=== PATIENT | female | born 1995 | race Caucasian/White ===

== ENCOUNTER 2019-12-03 07:49 | Emergency (ER) | payer BC, SELFPAY ==
--- NOTE | ~2019-12-03 | XR_ITS ---
EXAMINATION: XR wrist RT min 3V EXAM DATE: 12/03/2019 08:40 INDICATION: No known recent injury provided at this time. Pain of the right wrist ulnar side. TECHNIQUE: Right wrist frontal, frontal with ulnar deviation, oblique and lateral projections obtain ed and reviewed. There is no prior study for comparison. FINDINGS: Right wrist scapholunate joint space is maintained. There are no acute fractures or disloca tions identified. There is no subcutaneous gas. The soft tissue is unremarkable. There are no rad iopaque foreign bodies. There are no bony erosions identified. IMPRESSION: 1. Unremarkable XR wrist RT min 3V exam. Reviewed, dictated and finalized at location B. 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
[2019-12-03 07:55] VITALS: BP 131/68; PULSE 90; RESP 19; TEMP 36.4; O2SAT 99
--- NOTE | 2019-12-03 08:29 | ED.EXTPRO ---
HPI - Extremity Problem General Chief complaint: Extremity Problem,Nontraumatic Stated complaint: right hand injury Time Seen by Provider: 12/03/19 08:04 Source: patient Mode of arrival: ambulatory Limitations: no limitations History of Present Illness HPI Narrative: This is a 24 year old female that presents to the ER for right wrist pain since yesterday. Reports sudden onset while at work. No known injuries or trauma. Reports the pain is on the medial side of her wrist. Worse with movement and relieved with rest. Also reports some swelling of her hand. Reports she took some ibuprofen just prior to arrival. Denies fever, decreased ROM or erythema. Related Data Allergies Allergy/AdvReac Type Severity Reaction Status Date / Time amoxicillin Allergy Intermediate rash Verified 12/03/19 08:01 Review of Systems Review of Systems: Narrative: CONSTITUTIONAL: Denies fever SKIN: Denies rash MUSCULOSKELETAL: Reports joint pain, and myalgia. NEUROLOGIC: Denies numbness All systems reviewed & are unremarkable except as noted in HPI and below PMFSH Surgical History Surgical History (Updated 12/03/19 @ 08:31 by Ni José PA-C) History of tonsillectomy Social History Social History (Updated 12/03/19 @ 08:31 by Ni José PA-C) Smoking status: Never smoker Gender identity (if verbalized by the patient): Female Exam Narrative: Exam Narrative: GENERAL: Well-appearing, well-nourished, and in no acute distress. HEAD: Normocephalic, atraumatic. EYES: EOMI. CHEST: Clear to auscultation. No respiratory distress. No wheezes rales or rhonchi HEART: Regular rate and rhythm. No murmur heard. Normal peripheral pulses. EXTREMITIES: Normal range of motion. Mild swelling about the right hand. No erythema or warmth. Normal radial pulses. Normal sensation. SKIN: Warm, dry, no rash. NEURO: No focal deficits. Alert and oriented x3. PSYCH: Normal mood and affect Course Vital Signs Vital signs: Vital Signs Temperature 97.5 F L 12/03/19 07:55 Pulse Rate 90 12/03/19 07:55 Respiratory Rate 19 12/03/19 07:55 Blood Pressure 131/68 12/03/19 07:55 Pulse Oximetry 99 12/03/19 07:55 Temperature 97.5 F L 12/03/19 07:55 Pulse Rate 90 12/03/19 07:55 Respiratory Rate 19 12/03/19 07:55 Blood Pressure 131/68 12/03/19 07:55 Pulse Oximetry 99 12/03/19 07:55 MDM - Extremity (Nontraumatic) MDM Narrative Medical decision making narrative: Patient presents the emergency department for right wrist pain since yesterday. No known injury or trauma. Mild swelling about the right hand. No erythema or warmth. Patient has normal range of motion of the hand. CBC without acute changes. Inflammatory markers are mildly elevated. D-dimer is not elevated. Right wrist x-rays without acute changes. Patient was instructed to rest, ice and take xbbs-[id number] pain medication as needed. She is to follow-up with primary care doctor. She was given warnings to return to the ER Lab Data Attestation: I reviewed the patient's lab results. Result diagrams: 12/03/19 08:43 Labs: Lab Results 12/03/19 12/03/19 12/03/19 Range/Units 08:43 08:43 08:43 WBC 7.6 (4.5-10.0) K/mm3 RBC 4.41 (4.2-5.4) M/mm3 Hgb 13.3 (12.0-15.0) g/dL Hct 40.8 (37.0-47.0) % MCV 92.5 (80-100) fl MCH 30.2 (26-34) pg MCHC 32.6 (32-36) g/dl RDW 13.2 (11.5-14.5) % Plt Count 290 (150-375) k/mm3 MPV 10.6 H (7.4-10.4) fl Immature Gran % (Auto) 0.1 (0-0.5) % Neut % (Auto) 70.7 (45.5-73.1) % Lymph % (Auto) 22.5 (18.3-44.2) % [place] % (Auto) 4.9 (2.6-8.5) % Eos % (Auto) 1.5 (0-4.4) % Baso % (Auto) 0.3 (0.2-1.2) % Lymph # (Auto) 1.70 (0.9-3.2) K/mm3 [place] # (Auto) 0.4 (0.1-0.6) K/mm3 Eos # (Auto) 0.1 (0-0.3) K/mm3 Baso # (Auto) 0.0 (0.0-0.1) K/mm3 Abs Immat Gran (auto) 0.01 (0.00-0.031) K/mm3 Absolute Neuts (auto) 5.4 (1.3-6.7) K/mm3
[2019-12-03 08:50] LABS: Basophils Percent Auto 0.3 % (0.2-1.2); Eosinophils Absolute Auto 0.1 K/mm3 (0-0.3); Eosinophils Percent Auto 1.5 % (0-4.4); Hematocrit 40.8 % (37.0-47.0); Hemoglobin 13.3 g/dL (12.0-15.0); Immature Granulocyte Absolute 0.01 K/mm3 (0.00-0.031); Immature Granulocyte Percent A 0.1 % (0-0.5); Lymphocytes Percent Auto 22.5 % (18.3-44.2); Mean Corpuscular HGB Conc 32.6 g/dl (32-36); Mean Corpuscular Hemoglobin 30.2 pg (26-34); Mean Corpuscular Volume 92.5 fl (80-100); Mean Platelet Volume 10.6 fl (7.4-10.4); Monocytes Absolute Auto 0.4 K/mm3 (0.1-0.6); Monocytes Percent Auto 4.9 % (2.6-8.5); Neutrophils Absolute Auto 5.4 K/mm3 (1.3-6.7); Neutrophils Percent Auto 70.7 % (45.5-73.1); Platelet Count Result 290 k/mm3 (150-375); Red Blood Count 4.41 M/mm3 (4.2-5.4); Red Cell Distribution Width 13.2 % (11.5-14.5); White Blood Count 7.6 K/mm3 (4.5-10.0)
[2019-12-03 09:02] LABS: D Dimer 0.45 ug/mL (<0.48)
[2019-12-03 09:05] LABS: CRP 2.2 mg/dL (<1.0)
[2019-12-03 09:25] LABS: Erythrocyte Sedimentation Rate 44 mm/hr (0-20)
[2019-12-03 10:13] VITALS: BP 125/76; PULSE 90; RESP 19; O2SAT 100
== END 2019-12-03 10:14 | disposition home or self-care (01) ==
PROVIDERS: Physician Assistant; Emergency Provider Family Medicine
DX: M25.531 Pain in right wrist (principal)
CPT/HCPCS: 36415; 73110; 85025; 85380; 85652; 86140; 99283

== ENCOUNTER 2020-03-16 07:50 | Outpatient (CLI) | payer BC, SELFPAY ==
[2020-03-16 08:04] LABS: Basophils Percent Auto 0.5 % (0.2-1.2); Eosinophils Absolute Auto 0.2 K/mm3 (0-0.3); Eosinophils Percent Auto 2.3 % (0-4.4); Hematocrit 41.3 % (37.0-47.0); Hemoglobin 13.4 g/dL (12.0-15.0); Immature Granulocyte Absolute 0.02 K/mm3 (0.00-0.031); Immature Granulocyte Percent A 0.2 % (0-0.5); Lymphocytes Absolute Auto 2.57 K/mm3 (0.9-3.2); Lymphocytes Percent Auto 29.3 % (18.3-44.2); Mean Corpuscular HGB Conc 32.4 g/dl (32-36); Mean Corpuscular Hemoglobin 30.3 pg (26-34); Mean Corpuscular Volume 93.4 fl (80-100); Mean Platelet Volume 10.1 fl (7.4-10.4); Monocytes Absolute Auto 0.6 K/mm3 (0.1-0.6); Monocytes Percent Auto 6.6 % (2.6-8.5); Neutrophils Absolute Auto 5.4 K/mm3 (1.3-6.7); Neutrophils Percent Auto 61.1 % (45.5-73.1); Platelet Count Result 267 k/mm3 (150-375); Red Blood Count 4.42 M/mm3 (4.2-5.4); Red Cell Distribution Width 13.1 % (11.5-14.5); White Blood Count 8.8 K/mm3 (4.5-10.0)
[2020-03-16 08:16] LABS: Alanine Aminotransferase 18 U/L (4-35); Albumin Level 4.1 g/dL (3.5-5.1); Alkaline Phosphatase 102 U/L (38-126); Aspartate Amino Transferase 22 U/L (14-36); Bilirubin,Total 0.3 mg/dL (0.2-1.3); Blood Urea Nitrogen 10 mg/dL (7-17); Calcium 9.2 mg/dL (8.4-10.2); Carbon Dioxide 26 mmol/L (22-30); Chloride 104 mmol/L (98-107); Cholesterol 209 mg/dL (0-200); Estimated Glomerular Filt Rate > 60; Glucose 92 mg/dL (65-105); HDL Direct 34 mg/dL; Potassium 4.5 mmol/L (3.4-5.0); Sodium 137 mmol/L (137-145); Triglycerides 158 mg/dL (<150)
[2020-03-16 08:27] LABS: LDL Cholesterol Direct 144 mg/dL
== END 2020-03-16 07:51 | disposition home or self-care (01) ==
PROVIDERS: PCP Family Medicine; Visit Provider Family Medicine
DX: R63.5 Abnormal weight gain (principal); Z13.220 Encounter for screening for lipoid disorders
CPT/HCPCS: 36415; 80053; 80061; 84443; 85025

== ENCOUNTER → 2020-12-14 09:37 | Outpatient (CLI) | payer BC, SELFPAY ==
--- NOTE | ~2020-12-14 | US_ITS ---
US breast BI complete DATE: 12/14/2020 10:11 INDICATION: Right breast pain for years in the subareolar area and now the complete breasts. TECHNIQUE: Bilateral complete sonographic imaging of the breasts, with color flow imaging COMPARISON: None FINDINGS: Right breast 8:00 4.5 cm from nipple: There is a circumscribed hypoechoic 1.2 x 0.8 x 1.2 cm mass wit h some internal vascularity. There is some through-transmission. The sonographic features are most co nsistent with benign fibroadenoma. No suspicious mass or shadowing is detected elsewhere in either breast. IMPRESSION: BI-RADS Category 2: Benign finding; right breast 1.2 x 0.8 cm likely benign fibroadenoma Reviewed, dictated and finalized at Location A. Reviewed, dictated and finalized at location A. ER HEAD IMPRESSION: BI-RADS Category 2: Benign finding; right breast 1.2 x 0.8 cm likel y benign fibroadenoma
== END ==
PROVIDERS: PCP Family Medicine; Visit Provider Obstetrics & Gynecology
DX: N63.13 Unspecified lump in the right breast, lower outer quadrant (principal)
CPT/HCPCS: 76641

== ENCOUNTER 2024-02-27 08:08 | Outpatient (CLI) | payer OTHER, SELFPAY ==
[2024-02-27 09:05] LABS: Anion Gap 8 mmol/L (4-12); Blood Urea Nitrogen 12 mg/dL (7-17); Calcium 9.7 mg/dL (8.4-10.2); Carbon Dioxide 25 mmol/L (22-30); Chloride 107 mmol/L (98-107); Cholesterol 197 mg/dL (0-200); Estimated Glomerular Filt Rate > 60; Glucose 104 mg/dL (65-110); HDL Direct 32 mg/dL; Potassium 4.6 mmol/L (3.4-5.0); Sodium 140 mmol/L (137-145); Triglycerides 201 mg/dL (<150)
[2024-02-27 09:18] LABS: LDL Cholesterol Direct 133 mg/dL
[2024-02-27 09:27] LABS: Basophils Percent Auto 0.4 % (0.2-1.2); Eosinophils Absolute Auto 0.1 K/mm3 (0-0.3); Eosinophils Percent Auto 1.4 % (0-4.4); Hematocrit 39.6 % (37.0-47.0); Hemoglobin 13.1 g/dL (12.0-15.0); Immature Granulocyte Absolute 0.02 K/mm3 (0.00-0.031); Immature Granulocyte Percent A 0.3 % (0-0.5); Lymphocytes Absolute Auto 2.13 K/mm3 (0.9-3.2); Lymphocytes Percent Auto 28.1 % (18.3-44.2); Mean Corpuscular HGB Conc 33.1 g/dl (32-36); Mean Corpuscular Hemoglobin 30.4 pg (26-34); Mean Corpuscular Volume 91.9 fl (80-100); Mean Platelet Volume 10.6 fl (7.4-10.4); Monocytes Absolute Auto 0.4 K/mm3 (0.1-0.6); Monocytes Percent Auto 5.7 % (2.6-8.5); Neutrophils Absolute Auto 4.9 K/mm3 (1.3-6.7); Neutrophils Percent Auto 64.1 % (45.5-73.1); Platelet Count Result 275 k/mm3 (150-375); Red Blood Count 4.31 M/mm3 (4.2-5.4); Red Cell Distribution Width 13.2 % (11.5-14.5); White Blood Count 7.6 K/mm3 (4.5-10.0)
== END 2024-02-27 08:09 | disposition home or self-care (01) ==
PROVIDERS: PCP Family Medicine; Visit Provider Family Medicine
DX: J02.9 Acute pharyngitis, unspecified (principal); R63.5 Abnormal weight gain; Z13.220 Encounter for screening for lipoid disorders
CPT/HCPCS: 36415; 80048; 80061; 84443; 85025

== ENCOUNTER 2024-03-10 14:19 | Outpatient (CLI) | payer OTHER, SELFPAY ==
--- NOTE | ~2024-03-10 | US_ITS ---
US breast RT limited DATE: 03/10/2024 14:51 INDICATION: History of right breast mass at 8:00 4.5 cm from nipple (December 14, 2020 bilateral compl ete breast examination) TECHNIQUE: Targeted real-time ultrasound and color-flow imaging of right breast at 8:00 4.5 cm from n ipple COMPARISON: December 14, 2020 bilateral complete breast FINDINGS: There is a circumscribed oval hypoechoic 1.46 x 1.0 x 1.35 cm slightly hypoechoic breast ma ss with some internal vascularity on color flow imaging. There is through transmission, no posterior shadowing. The margins are smooth and circumscribed and there is through transmission, factors all fa voring benign diagnosis. There is mild interval enlargement since December 14, 2020 at which time it measured approximately 0.8 x 1.2 x 1.24 cm dimension; there was some color flow signal within the lesion at that time as well.. IMPRESSION: BI-RADS Category 2: Benign finding. Probable benign fibroadenoma, slightly increased in s ize since December 14, 2020 Reviewed, dictated and finalized at Location A. Reviewed, dictated and finalized at location B. IMPRESSION: BI-RADS Category 2: Benign finding. Probable benign fibroadenoma, s lightly increased in size since December 14, 2020
== END 2024-03-10 14:20 | disposition home or self-care (01) ==
LOC: ANHIMG 14:22
PROVIDERS: PCP Family Medicine; Visit Provider Obstetrics & Gynecology
DX: N60.21 Fibroadenosis of right breast (principal)
CPT/HCPCS: 76642

== ENCOUNTER 2025-03-10 09:35 | Outpatient (CLI) | payer OTHER, SELFPAY ==
--- NOTE | ~2025-03-10 | US_ITS ---
US breast RT limited 03/10/2025 09:58 Indication: Right breast mass follow-up Procedure: High-resolution Limited ultrasound of the right breast Comparison: Comparison to multiple prior studies sequentially, with oldest reviewed study dated 07/2021. Findings: At 8:00, 4.5 cm from the nipple there is an oval circumscribed parallel oriented hypoechoic mass measuring 1.7 x 1.5 x 1 cm. There is internal vascularity measuring, no posterior features. Siz e comparison with 1.2 x 1.2 x 0.8 cm on 12/14/2020. Impression: 1: Enlarging right breast mass at 8:00, 4.5 cm from the nipple. BI-RADS CATEGORY 4-SUSPICIOUS ABNORMALITY RECOMMENDATION: Ultrasound-guided right breast biopsy recommended. Reviewed, dictated and finalized at location A. Impression: 1: Enlarging right breast mass at 8:00, 4.5 cm from the nipple. BI-RADS CATEGORY 4-SUSPICIOUS ABNORMALITY RECOMMENDATION: Ultrasound-guided right breast biopsy recommended.
--- OUTSIDE RECORDS SUMMARY | 2025-03-10 10:11 | XMS_ITS | Clinical Summary ---
Author Organization [facility] Address [address] [place] [address] Care Team Providers Care Street Light Repairer Name Role Phone Unavailable Primary Care Provider Unavailabl e Source Comments [facility],non-owned Affiliates and Associated Physician Practices is amultiple site organization consisting of ambulatory clinics and hospital sitesin [place], [place]. This disclosure is being madepursuant to the Care Everywhere program and may not contain all information available regarding this patient. 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 Gender Identity Not on file Sexual Orientation Not on file Plan of Treatment Health Maintenance Due Date Last Done Comments HIV SCREENING 2011 HEPATITIS C SCREENING 08/02/2014 DTAP/TDAP/TD VACCINES (1 - Tdap) 2015 HEPATITIS B VACCINE (1 of 3 - 19+ 3-dose series) 2015 COVID-19 VACCINE (1 - 2023-2 5 season) 2024 DEPRESSION SCREENING 11/05/2024 INFLUENZA VACCINE (Season Ended) 2025 ZOSTER VACCINE (1 of 2) 2046 HIB VACCINE Aged Out No longer eligi ble based on patient's age to complete this topic HPV VACCINE Aged Out No longer eligi ble based on patient's age to complete this topic MENINGOCOCCAL (Group B) VACC INE SHARED DECISION-MAKING Aged Out No longer eligibl e based on patient's age to complete this topic MENINGOCOCCAL GROUPS A/C/Y/W VACCINE Aged Out No longer eligible b ased on patient's age to complete this topic PNEUMOCOCCAL VACCINE Aged Out No long er eligible based on patient's age to complete this topic
== END 2025-03-10 09:36 | disposition home or self-care (01) ==
PROVIDERS: PCP Family Medicine; Visit Provider Obstetrics & Gynecology
DX: N63.13 Unspecified lump in the right breast, lower outer quadrant (principal)
CPT/HCPCS: 76642

== ENCOUNTER 2025-04-30 10:34 | Outpatient (CLI) | payer OTHER, SELFPAY ==
--- NOTE | ~2025-04-30 | CT_ITS ---
CT sinus wo con Ordering provider: Briana Rey APRN History: . Chronic sinusitis, unspecified . Comparison: None. Technique: Thin slice Scans CT of the paranasal sinuses was performed with coronal and sagittal refor matted images. No IV contrast. . Automated exposure control and iterative reconstruction technique w ere employed. The dose-length product was 379.13 mGy-cm. Findings: NASAL SEPTUM: Mild right nasal septal deviation. OSTEOMEATAL UNITS: Bilaterally patent. NASAL TURBINATES AND NASOPHARYNX: Normal. PARANASAL SINUSES: Bilateral maxillary sinus. Bilateral ethmoid sinus disease. Bilateral frontal sinu s disease. VISUALIZED MASTOIDS: Normal as visualized. BONES: Normal. SUPERFICIAL SOFT TISSUES/VISUALIZED BRAIN PARENCHYMA: Normal. IMPRESSION: Mild right nasal septal deviation. Pansinusitis. Reviewed, dictated and finalized at location A.
== END 2025-04-30 10:35 | disposition home or self-care (01) ==
LOC: GOSHIMG 10:34
PROVIDERS: PCP Family Medicine; Visit Provider Nurse Practitioner Adult Health
DX: J34.2 Deviated nasal septum (principal); J32.4 Chronic pansinusitis
CPT/HCPCS: 70486

== ENCOUNTER 2025-06-30 00:15 | Day surgery (SDC) | payer OTHER, SELFPAY ==
[2025-06-19 08:22] VITALS: BMI 36.3
--- NOTE | 2025-06-19 08:29 | PC.NURSE ---
Report to the Outpatient Waiting Room, entrance under the green pavilion located off [facility], at time _0600_ on date _[id number]_. Planned Procedure Time: _0730_.? Time changes happen often and if your time is changed the preop area will call you the afternoon before. - You and your visitor will be asked to self-screen and do not enter if you have any COVID symptoms. Please call surgeon if you need to reschedule. - A mask is optional within the hospital at this time. Patients may have clear liquids (water, carbonated beverages, clear teas, apple juice) until 3 hours prior to surgery with a maximum of 20 ounces. - No food from midnight until time of surgery and no smoking, or chewing tobacco (or any form of nicotine). No chewing gum, candy or mints. Take only the following medications with a SIP of water on the morning of surgery: __Cryselle and Flonase___ DO NOT STOP ANY OF YOUR OTHER PRESCRIPTION MEDICATIONS PRIOR TO SURGERY EXCEPT THE FOLLOWING Hold all vitamins and supplements for 3 days per anesthesiologist. Medications to discontinue per physician Date to take last dose Please no make-up, nail malawian, hairspray, perfume, deodorant, or body powder the day of surgery.? No jewelry (including any body piercings) or valuables the day of surgery, leave them at home.? Please take a shower or bath the night before, or the morning of, surgery with an antibacterial soap.? Wear comfortable, loose fitting clothing.? - Jewelry must be removed prior to entering the operating room.? Rings and piercings that are not removed may be cut off. - The hospital will not accept responsibility for valuables.? - Please leave all valuables, including medications, at home the day of surgery. If you are going home after surgery, a licensed coal tram driver must drive you home.? - NO public transportation without another adult if you receive anesthesia. - We recommend that an adult stay with you for 24 hours following discharge. - We also recommend that you do not drive, make important decision, drink alcoholic beverages, or take any drugs that were not prescribed by your health care provider for at least 24 hours after your discharge time. Follow any additional instructions given to you from your surgeon. Telephone instructions given to __Anthonyyya___and asked if any additional questions and then verbalized understanding. Patient advised to call surgeon office or pre surgery nurse liaison [phone] if any additional questions.
[2025-06-30] VITALS (8 sets, daily range): BP systolic 101–131; BP diastolic 46–76; PULSE 63–93; RESP 10–16; TEMP 36.3–36.7; O2SAT 99–100
[2025-06-30] MEDS: LACTATED RINGERS 1,000 ML 30 ML IV CONT (06:30)
[2025-06-30] MEDS: ACETAMINOPHEN 500 MG TABLET 1000 MG PO (06:55)
--- NOTE | 2025-06-30 07:02 | WPDHPUPDATE1 ---
History and Physical Update Update Date/Time: 06/30/25 07:02 - Excisional biopsy of right breast mass. History and Physical has been reviewed, including an updated exam of the patient. There are NO changes in the patient's condition. Risks, benefits, and alternatives have been discussed and questions answered. Patient agrees to proceed with procedure.
--- NOTE | 2025-06-30 07:04 | P.PNAN_ITS ---
Anes - Initial Pre Proc Eval Procedure: Operation Date: 06/30/25 07:30 Proposed Procedures p Excisional Biopsy Right Breast Mass - Soraya Khan MD Date/Time: 06/30/25 07:04 Surgeon: Soraya Khan MD Pre Op Diagnosis: unspec lump right breast Patient Data Age: 29 Gender: F Height: 1.65 m Weight: 103 kg Last Vital Signs Temp 36.7 C 06/30/25 06:10 Pulse 93 06/30/25 06:10 Resp 16 06/30/25 06:10 BP 131/76 06/30/25 06:10 Pulse Ox 100 06/30/25 06:10 O2 Del Method Room Air 06/30/25 06:10 Allergies Allergy/AdvReac Type Severity Reaction Status Date / Time amoxicillin Allergy Intermediate rash Verified 06/30/25 06:14 Home Medications ?Medication ?Instructions ?Recorded ?Confirmed ?Type norgestrel 0.3 mg-ethinyl 1 tablet PO DAILY 12/24/23 0 06/30/25 History estradiol 30 mcg tablet (Erin (28)) fluticasone propionate 50 2 spray intranasal BID #16 m L 05/15/25 06/30/25 Rx mcg/actuation nasal spray,suspension (Flonase Allergy Relief) Patient hx anesthesia problems: post op nausea/vomiting Family hx anesthesia problems: none Results Review: All pre-operative results and documents have been reviewed as part of the pre- operative evaluation. [facility] Past Medical History Medical History Deviated nasal septum Pansinusitis Chronic sinusitis Otitis media with effusion Sinusitis Pharyngitis COVID Adult BMI 36.0-36.9 kg/sq m Weight gain Surgical History Surgical History Hx of adenoidectomy History of tonsillectomy Family History Family History Father Hyperthyroidism Arthritis Mother Vitamin D deficiency Nonalcoholic fatty liver disease Pre-diabetes Sibling No problems noted. 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 Gender identity (if verbalized by the patient): Female Spiritual care concerns: No Anes - Eval Final PreProcedure Day of Procedure 06/30/25 07:04 Patient weight: obese Heart: regular rate and rhythm Lungs: clear to auscultation Airway: Mallampati scale class II Neurological: alert and oriented Last oral intake: >/= 8 hours ASA classification: II Emergent: no Anesthetic plan: proceed Anesthesia type and monitoring: general LMA and standard monitoring Results Review: All pre-operative results and documents have been reviewed as part of the pre- operative evaluation. Informed Consent: The patient's anesthetic plan and its attendant risks and benefits were discussed with the patient/family/POA. Questions were solicited and answers provided to the satisfaction of the patient/family/POA.
[2025-06-30 07:13] LABS: BEDSIDEPREGUCG Negative (Negative)
[2025-06-30] MEDS: SCOPOLAMINE 1 MG PATCH 1 PATCH TRANSDERM (07:13)
[2025-06-30] MEDS: ceFAZolin 2 GM in SODIUM CHLORIDE 0.9% IV 50 ML 100 ML IVPB (07:21)
--- NOTE | 2025-06-30 07:45 | S_PTH ---
PATIENT: Deepthi Radford LOC: [facility] U#:[id number] AGE/SX: 29/F ROOM: RE06/30/[address]: Soraya Khan MD : 1995 BED: DIS: 06/30/2025 SPEC #: [id number] RECD: 06/30/25 09:50 STATUS: NICK REQ #: [id number] ISAÍSA: 06/30/25 07:[address]: Soraya Khan DEPT: [facility] Surgical RECD BY: Lisa Portillo ENTERED: 06/30/25 09:51 SP TYPE: Surgical OTHR DR: Matt Gupta MD Tissues: A - Breast Biopsy Procedures: Hematoxylin and Eosin Stain Gross and Microscopic Level 4
[2025-06-30] MEDS: LIDOCAINE 1% LOCAL INJ 10 ML VIAL INFILTRATE (07:46)
[2025-06-30] MEDS: BUPIVACAINE/EPINEPHRINE 0.5% 30 ML VIAL 10 ML INFILTRATE (07:47)
--- NOTE | 2025-06-30 07:59 | W.PM.PROC2 ---
Procedure Note - Detailed Date of Procedure 06/30/25 Pre-op Diagnosis Enlarging painful right breast Post-op Diagnosis Same Procedure Performed Excisional biopsy of right breast mass Surgeon Soraya Khan MD Anesthesia MAC Description of Procedure Patient was identified in the preoperative holding area brought to the operating room suite. She was laid supine in the OR table sequential compression devices were applied. General anesthesia was induced without difficulty. The right breast and chest area were prepped and draped in a sterile fashion. The mass was easily palpated around 8 o'clock position 4.5 cm from the nipple and decision was made to access this mass via a small IMF incision. Dissection was carried down through the subcutaneous tissue into the breast tissue and dissected towards the mass cephalad. Once the mass was identified through the incision this was completely excised and sent to pathology is the permanent specimen. The cavity was irrigated with saline hemostasis was assured. The cavity was approximated with 3-0 Vicryl intraparenchymal suture. The deep dermal layer was then closed with 3-0 Vicryl interrupted suture followed by 4-0 Monocryl in a subcuticular fashion for the skin. Dermabond was applied followed by Steri-Strips and a surgical bra. Patient was awoken from anesthesia and taken to the recovery area in stable condition. All needles, instruments, sponge counts were correct as reported by the operating room staff. Patient tolerated the procedure well with no immediate complications. Estimated Blood Loss 5 Pathology Yes Complications No immediate complications Condition Stable Disposition PACU [facility] Billing Surgery - Charge Forward: Surgery Billing (CPT 60959)
== END 2025-06-30 09:48 | disposition home or self-care (01) ==
PROVIDERS: PCP Family Medicine; Visit Provider Surgery
PROC: (CPT 19120; principal; 2025-06-30 07:30)
DX: D24.1 Benign neoplasm of right breast (principal); J32.9 Chronic sinusitis, unspecified; E66.9 Obesity, unspecified; Z68.37 Body mass index [BMI] 37.0-37.9, adult; Z98.890 Other specified postprocedural states
CPT/HCPCS: 19120; 88305; J0690; A9270; J1100; J2003; J2250; J2405; J2704; J3010; J7120; L8000; Q9968

== ENCOUNTER 2025-08-07 08:21 | Outpatient (CLI) | payer OTHER, SELFPAY ==
--- OUTSIDE RECORDS SUMMARY | 2025-08-07 08:27 | XMS_ITS | Clinical Summary ---
Author Organization [facility] Address [address] [place] [address] Care Team Providers Care Sewer Tapper Name Role Phone Unavailable Primary Care Provider Unavailabl e Source Comments [facility],non-owned Affiliates and Associated Physician Practices is amultiple site organization consisting of ambulatory clinics and hospital sitesin [place], [place], [place] and [place]. This disclosure is being madepursuant to the Care Everywhere program and may not contain all information available regarding this patient. 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
[2025-08-07 09:18] LABS: Hematocrit 37.7 % (37.0-47.0); Hemoglobin 12.6 g/dL (12.0-15.0); Immature Granulocyte Percent A 0.3 % (0-0.5); Lymphocytes Absolute Auto 2.46 K/mm3 (0.9-3.2); Mean Corpuscular HGB Conc 33.4 g/dl (32-36); Mean Corpuscular Hemoglobin 29.8 pg (26-34); Mean Corpuscular Volume 89.1 fl (80-100); Nucleated Red Blood Cells Absolute Auto 0.000 K/mm3 (0.0-0.012); Nucleated Red Blood Cells Perc 0.0 % (0.0-0.2); Platelet Count Result 295 k/mm3 (150-375); Red Blood Count 4.23 M/mm3 (4.2-5.4); White Blood Count 7.4 K/mm3 (4.5-10.0)
[2025-08-07 09:36] LABS: Alanine Aminotransferase 22 U/L (6-35); Albumin Level 4.3 g/dL (3.5-5.1); Alkaline Phosphatase 82 U/L (38-126); Anion Gap 8 mmol/L (4-12); Aspartate Amino Transferase 29 U/L (14-36); Bilirubin,Total 0.4 mg/dL (0.2-1.3); Blood Urea Nitrogen 9 mg/dL (7-17); Calcium 9.5 mg/dL (8.4-10.2); Carbon Dioxide 26 mmol/L (22-30); Chloride 103 mmol/L (98-107); Cholesterol 234 mg/dL (0-200); Estimated Glomerular Filt Rate > 60; Glucose 93 mg/dL (65-110); HDL Direct 36 mg/dL; Potassium 4.4 mmol/L (3.4-5.0); Sodium 137 mmol/L (137-145); Total Protein 8.1 g/dL (6.3-8.2); Triglycerides 197 mg/dL (<150)
[2025-08-07 09:49] LABS: Iron 101 ug/dL (37-170)
[2025-08-07 09:58] LABS: Percent Iron Saturation 28 % (20-50)
[2025-08-07 10:13] LABS: Thyroid Stimulating Hormone 1.170 uIU/mL (0.465-4.680)
[2025-08-07 10:48] LABS: Vitamin B12 322.0 pg/mL (239-931)
[2025-08-07 13:43] LABS: Free T4 Free Thyroxine 1.10 ng/dL (0.78-2.19)
== END 2025-08-07 08:22 | disposition home or self-care (01) ==
LOC: ANHLAB 08:22
PROVIDERS: PCP Family Medicine; Visit Provider Nurse Practitioner Adult Health
DX: Z13.220 Encounter for screening for lipoid disorders (principal); J02.9 Acute pharyngitis, unspecified; K21.9 Gastro-esophageal reflux disease without esophagitis; Z83.49 Family history of other endocrine, nutritional and metabolic diseases
CPT/HCPCS: 36415; 80053; 80061; 82306; 82607; 82746; 83540; 83550; 84439; 84443; 85025; 86376